=== PATIENT | female | born 1995 | race Two or more races ===

== ENCOUNTER 2021-06-30 08:30 | Outpatient (CLI) | payer OTHER | END 2021-06-30 10:30 | disposition home or self-care (01) | LOC: ASH CLINIC 08:30 | PROVIDERS: ATTEND Emergency Medicine | DX: Z23 Encounter for immunization (principal); U07.1 COVID-19 ==

== ENCOUNTER 2022-02-27 18:27 | Emergency (ER) | payer OTHER ==
[~2022-02-27] VITALS: Ht 175.3 cm; Wt 112.9 kg
== END 2022-02-27 20:07 | disposition home or self-care (01) ==
LOC: ER 18:27
DX: R21 Rash and other nonspecific skin eruption (principal); L42 Pityriasis rosea